=== PATIENT | male | born 1990 | race Caucasian/White ===

== ENCOUNTER 2016-07-18 20:36 | Emergency (ER) | payer OTHER ==
[~2016-07-18] VITALS: Ht 170.2 cm; Wt 84.0 kg
[~2016-07-18 20:36] MED LIST: CYCL-36 PO; ERYTOIN10 OP
[2016-07-18 20:39] VITALS: BP 131/83; PULSE 80; RESP 16; TEMP 98.3; O2SAT 100
[2016-07-18 22:32] LABS: AUTOMATED NEUTROPHIL # 7.6 TH/MM3 (1.8-7.7); BASOPHIL % 0.4 % (0.0-2.0); EOSINOPHIL # 0.1 TH/MM3 (0-0.4); EOSINOPHIL % 0.7 % (0.0-4.0); HEMATOCRIT 41.4 % (39.0-51.0); HEMO FLAGS DIFF FINAL; LYMPHOCYTE # 1.6 TH/MM3 (1.0-4.8); MEAN CELL VOLUME 89.4 FL (80.0-100.0); MEAN CORPUSCULAR HEMOGLOBIN 31.5 PG (27.0-34.0); MEAN CORPUSCULAR HGB CONC 35.3 % (32.0-36.0); MONO % 7.4 % (0.0-8.0); NEUT % 75.5 % (16.0-70.0); PLATELET COUNT 230 TH/MM3 (150-450); RED BLOOD COUNT 4.63 MIL/MM3 (4.50-5.90); RED CELL DISTRIBUTION WIDTH 12.7 % (11.6-17.2)
[2016-07-18 23:00] LABS: BICARBONATE 28.4 MEQ/L (21.0-32.0); MAGNESIUM 2.2 MG/DL (1.5-2.5); POTASSIUM 3.5 MEQ/L (3.5-5.1)
[2016-07-18 23:56] VITALS: BP 151/89; PULSE 72; RESP 18; O2SAT 100
--- NOTE | 2016-07-19 | PD ---
HPI Chief Complaint: Cardiac Complaint Time Seen by Provider: 23:53 Travel History International Travel<30 days: No Contact w/Intl Traveler<30days: No Traveled to known affect area: No History of Present Illness HPI Patient is a 25-year-old healthy male presents emergency Department with palpitations. For the last day he has had intermittent palpitations associated started is racing, skipping beats. No associated chest pain, shortness of breath or lightheadedness, nausea vomiting. No personal family history of prolonged QT, WPW, Brugada. Patient denies any stimulant abuse, but when asked specifically about caffeine he drinks approximately 10-12 cans of soda per day. He smokes marijuana but denies any other illicit drugs. PFSH Past Medical History Diminished Hearing: No Immunizations Current: Yes Past Surgical History Appendectomy: Yes Social History Alcohol Use: Yes (OCCAS) Tobacco Use: Yes (1PPD) Substance Use: Yes (marijuana) Allergies-Medications (Allergen,Severity, Reaction): Coded Allergies: No Known Allergies (Unverified , 07/18/16) Reported Meds & Prescriptions Reported Meds & Active Scripts Active Review of Systems Except as stated in HPI: all other systems reviewed are Neg Physical Exam Narrative GENERAL: Well Appearing male in no acute distress SKIN: Warm and dry. HEAD: Normocephalic. EYES: No scleral icterus. No injection or drainage. ENT: No nasal bleeding or discharge. Mucous membranes pink and moist. NECK: Supple. CARDIOVASCULAR: Regular rate and rhythm. No murmur appreciated. RESPIRATORY: No accessory muscle use. Clear to auscultation. Breath sounds equal bilaterally. GASTROINTESTINAL: Abdomen soft, non-tender, nondistended MUSCULOSKELETAL: Normal gait NEUROLOGICAL: Awake and alert. Normal speech. PSYCHIATRIC: Appropriate mood and affect; insight and judgment normal. Data Data Last Documented VS Vital Signs Date Time Temp Pulse Resp B/P Pulse Ox O2 Delivery O2 Flow Rate FiO2 07/18/16 23:56 72 18 151/89 100 Room Air 07/18/16 20:39 98.3 Orders Electrocardiogram (07/18/16 20:47) Basic Metabolic Panel (Bmp) (07/18/16 21:03) Complete Blood Count With Diff (07/18/16 21:03) Magnesium (Mg) (07/18/16 21:03) Labs Laboratory Tests Test 07/18/16 22:09 White Blood Count 10.0 TH/MM3 Red Blood Count 4.63 MIL/MM3 Hemoglobin 14.6 GM/DL Hematocrit 41.4 % Mean Corpuscular Volume 89.4 FL Mean Corpuscular Hemoglobin 31.5 PG Mean Corpuscular Hemoglobin 35.3 % Concent Red Cell Distribution Width 12.7 % Platelet Count 230 TH/MM3 Mean Platelet Volume 9.0 FL Neutrophils (%) (Auto) 75.5 % Lymphocytes (%) (Auto) 16.0 % Monocytes (%) (Auto) 7.4 % Eosinophils (%) (Auto) 0.7 % Basophils (%) (Auto) 0.4 % Neutrophils # (Auto) 7.6 TH/MM3 Lymphocytes # (Auto) 1.6 TH/MM3 Monocytes # (Auto) 0.7 TH/MM3 Eosinophils # (Auto) 0.1 TH/MM3 Basophils # (Auto) 0.0 TH/MM3 CBC Comment DIFF FINAL Differential Comment Sodium Level 141 MEQ/L Potassium Level 3.5 MEQ/L Chloride Level 106 MEQ/L Carbon Dioxide Level 28.4 MEQ/L Anion Gap 7 MEQ/L Blood Urea Nitrogen 13 MG/DL Creatinine 0.80 MG/DL Estimat Glomerular Filtration 119 ML/MIN Rate Random Glucose 89 MG/DL Calcium Level 9.2 MG/DL Magnesium Level 2.2 MG/DL MDM Medical Decision Making Medical Screen Exam Complete: Yes Emergency Medical Condition: Yes Medical Record Reviewed: Yes Differential Diagnosis 25-year-old male here with palpitations time one day intermittently. Differential includes caffeine abuse, arrhythmia, electrolyte abnormality, anxiety and less likely prolonged QT, WPW, Brugada Narrative Course Patient placed on monitor, IV established and blood obtained. Twelve-lead EKG shows sinus rhythm without notable ST or T-wave abnormalities and normal intervals. No evidence of prolonged QT, WPW, Brugada. CBC, BMP, magnesium unremarkable. Patient was reassured and instructed to cut back on his caffeine use. Diagnosis Primary Impression: Palpitations Additional Impression: Caffeine abuse Referrals: Primary Care Physician as needed Additional Instructions: Cut back on caffeine as instructed. Med/Other Pt SpecificInfo: No Change to Meds Disposition: 01 DISCHARGE HOME Condition: Stable Betty William MD Jul 19, 2016 00:00
[2016-07-19] MEDS ORDERED: VIST25CA PO (09:35)
--- NOTE | 2016-07-20 12:21 | EKG ---
Date Performed: 07/18/2016 Time Performed: 21:11:31 PTAGE: 25 years EKG: Sinus rhythm NORMAL ECG Since previous tracing, no significant change noted NO PREVIOUS TRACING DOCTOR: Wendy Shanks Interpretating Date/Time 07/20/2016 12:20:06
== END 2016-07-19 00:11 | disposition home or self-care (01) ==
LOC: NEPE 20:36
DX: R00.2 Palpitations (principal); F15.10 Other stimulant abuse, uncomplicated; F17.210 Nicotine dependence, cigarettes, uncomplicated
CPT/HCPCS: 80048; 83735; 85025; 93005

== ENCOUNTER 2016-07-19 08:57 | Emergency (ER) | payer SELFPAY ==
[2016-07-19 09:10] VITALS: BP 126/66; PULSE 73; RESP 16; TEMP 98; O2SAT 95
[2016-07-19] MEDS ORDERED: VIST25CA PO (09:35)
--- NOTE | 2016-07-19 09:36 | PD ---
HPI Chief Complaint: Cardiac Complaint Time Seen by Provider: 09:22 Travel History International Travel<30 days: No Contact w/Intl Traveler<30days: No Traveled to known affect area: No History of Present Illness HPI 25-year-old male complains of palpitation, sweating, flushing this morning. Patient was seen here yesterday with intermittent palpitation. EKG was normal. CBC BMP was normal. Patient was advised to follow with local physician. Patient was advised to decreasing caffeine intake daily. Patient states that he woke up this morning with palpitation and flushing and sweating. Patient started better now. Patient denies any chest pain. Patient states that he has some mild transient shortness of breath this morning. Patient denies any history of CAD. Patient states that he drinks a lot of coffee recently. Patient denies any illicit drugs or alcohol use. PFSH Past Medical History Diminished Hearing: No Immunizations Current: Yes Tetanus Vaccination: Unknown Influenza Vaccination: No Past Surgical History Appendectomy: Yes Social History Alcohol Use: Yes (OCCAS) Tobacco Use: Yes (1PPD) Substance Use: Yes (marijuana) Allergies-Medications (Allergen,Severity, Reaction): Coded Allergies: No Known Allergies (Unverified , 07/19/16) Reported Meds & Prescriptions Reported Meds & Active Scripts Active No Active Prescriptions or Reported Medications Review of Systems General / Constitutional: No: Fever Eyes: No: Visual changes HENT: No: Headaches Cardiovascular: Positive: Palpitations, No: Chest Pain or Discomfort Respiratory: No: Shortness of Breath Gastrointestinal: No: Abdominal Pain Genitourinary: No: Dysuria Musculoskeletal: No: Pain Skin: No Rash Neurologic: No: Weakness Psychiatric: No: Depression Endocrine: No: Polydipsia Hematologic/Lymphatic: No: Easy Bruising Physical Exam Narrative GENERAL: Well-nourished, well-developed patient. SKIN: Warm and dry. HEAD: Normocephalic. EYES: No scleral icterus. No injection or drainage. NECK: Supple, trachea midline. No JVD or lymphadenopathy. CARDIOVASCULAR: Regular rate and rhythm without murmurs, gallops, or rubs. RESPIRATORY: Breath sounds equal bilaterally. No accessory muscle use. GASTROINTESTINAL: Abdomen soft, non-tender, nondistended. MUSCULOSKELETAL: No cyanosis, or edema. BACK: Nontender without obvious deformity. No CVA tenderness. Neurologic exam normal. Data Data Last Documented VS Vital Signs Date Time Temp Pulse Resp B/P Pulse Ox O2 Delivery O2 Flow Rate FiO2 07/19/16 09:26 73 16 95 Room Air 07/19/16 09:10 98.0 126/66 Orders Electrocardiogram (07/19/16 ) MDM Medical Decision Making Medical Screen Exam Complete: Yes Emergency Medical Condition: Yes Interpretation(s) 9:33 AM. EKG shows sinus rhythm with PACs. Differential Diagnosis Differential diagnosis including PACs, PVCs, V. tach, atrial fibrillation, atrial flutter. Narrative Course 25-year-old male with palpitation. Patient was here yesterday and CBC BMP EKG was normal. EKG done today shows sinus rhythm nonspecific ST-T wave change. driver guard shows PACs. Diagnosis Primary Impression: Cardiac arrhythmia Qualified Code: I49.1 - Atrial premature depolarization Patient Instructions: General Instructions Additional Instructions: Avoid caffeine products. Vistaril as needed. Follow-up local physician. Return if worse. Med/Other Pt SpecificInfo: Prescription(s) given Scripts Hydroxyzine Pamoate (Vistaril)25 Mg Cap25 Mg PO BID #20 CAP Ref 0 Prov:Boston Power MD 07/19/16 Disposition: 01 DISCHARGE HOME Condition: Stable Boston Power MD Jul 19, 2016 09:35
--- NOTE | 2016-07-20 12:22 | EKG ---
Date Performed: 07/19/2016 Time Performed: 09:18:09 PTAGE: 25 years EKG: Sinus rhythm WITH SINUS ARRHYTHMIA NORMAL ECG Since PREVIOUS TRACING , no significant change noted PREVIOUS TRACIN07/18/2016 21.11 DOCTOR: Wendy Shanks Interpretating Date/Time 07/20/2016 12:20:31
== END 2016-07-19 09:41 | disposition home or self-care (01) ==
LOC: NEPA 08:57
DX: I49.1 Atrial premature depolarization (principal)
CPT/HCPCS: 93005

== ENCOUNTER 2016-07-28 14:28 | Emergency (ER) | payer SELFPAY ==
[~2016-07-28] VITALS: Ht 170.2 cm; Wt 85.1 kg
[~2016-07-28 14:28] MED LIST changes: -CYCL-36 PO; -ERYTOIN10 OP; +VIST25CA PO
[2016-07-28 14:44] VITALS: BP 116/75; PULSE 67; RESP 16; TEMP 98.7; O2SAT 99
--- NOTE | 2016-07-28 16:03 | PD ---
HPI Chief Complaint: Cardiac Complaint Time Seen by Provider: 15:54 Travel History International Travel<30 days: No Contact w/Intl Traveler<30days: No Traveled to known affect area: No History of Present Illness HPI The patient is a 25-year-old male who presents emergency department for palpitations and occasional right sided chest wall pain. The patient has been evaluated several times in July for palpitations. The patient states he will feel his heart rate beating irregular, felt palpitations, which causes anxiety. The patient was seen several times in the emergency department had an EKG which revealed sinus arrhythmia with PACs. The patient was advised to follow-up with her primary physician on an outpatient basis, however, has not followed up with a outpatient basis. He also complains of pain located over the lateral aspect of the sternal border on the right side, states there is a small lump which is nontender. The patient denies any acute chest pain, shortness breath, nausea, vomiting, diaphoresis. The patient does drink significant caffeine. The patient denies ingestion of any [id number] sympathomimetics, amphetamines, or cocaine. He denies any history of hypertension, hyperlipidemia, or significant early CAD. PFSH Past Medical History Diminished Hearing: No Immunizations Current: Yes Past Surgical History Appendectomy: Yes Social History Alcohol Use: Yes (OCCAS) Tobacco Use: Yes (1PPD) Substance Use: Yes (marijuana) Allergies-Medications (Allergen,Severity, Reaction): Coded Allergies: No Known Allergies (Unverified , 07/28/16) Reported Meds & Prescriptions Reported Meds & Active Scripts Active No Active Prescriptions or Reported Medications Review of Systems Except as stated in HPI: all other systems reviewed are Neg HENT: No: Lightheadedness Cardiovascular: Positive: Chest Pain or Discomfort (right sternal border pain with small lump), Palpitations, No: Tachycardia, Diaphoresis, Dyspnea on exertion Respiratory: No: Shortness of Breath Gastrointestinal: No: Nausea, Vomiting, Abdominal Pain Musculoskeletal: No: Weakness Neurologic: No: Dizziness Physical Exam Narrative GENERAL: Awake, alert, pleasant 25-year-old male who appears his stated age and is in no acute respiratory distress. SKIN: Warm and dry. HEAD: Atraumatic. Normocephalic. EYES: Pupils equal and round. No scleral icterus. No injection or drainage. ENT: No nasal bleeding or discharge. Mucous membranes pink and moist. NECK: Trachea midline. No JVD. CARDIOVASCULAR: Regular rate and rhythm. No murmur appreciated. Patient has mild tenderness along the rib junction of the right sternal border on the inferior aspect. There is no crepitus. RESPIRATORY: No accessory muscle use. Clear to auscultation. Breath sounds equal bilaterally. GASTROINTESTINAL: Abdomen soft, non-tender, nondistended. No epigastric tenderness. Negative Short's. MUSCULOSKELETAL: No obvious deformities. No clubbing. No cyanosis. No edema. NEUROLOGICAL: Awake and alert. No obvious cranial nerve deficits. Motor grossly within normal limits. Normal speech. PSYCHIATRIC: Appropriate mood and affect; insight and judgment normal. Data Data Last Documented VS Vital Signs Date Time Temp Pulse Resp B/P Pulse Ox O2 Delivery O2 Flow Rate FiO2 07/28/16 14:44 98.7 67 16 116/75 99 Orders Electrocardiogram (07/28/16 ) Chest, Pa & Lat (07/28/16 ) [facility] Medical Decision Making Medical Screen Exam Complete: Yes Emergency Medical Condition: Yes Medical Record Reviewed: Yes Interpretation(s) EKG reveals normal sinus rhythm with a rate of 63. No evidence of WPW or Brugada. NE interval is 142 ms. QTC 379 ms. Last Impressions Chest X-Ray 07/28/16 0000 Signed Impressions: Service Date/Time: Thursday, July 28, 2016 15:58 - CONCLUSION: No acute cardiopulmonary process. Devyn Teran MD Differential Diagnosis Differential diagnosis includes costochondritis, inflammation of the sternum, palpitations, arrhythmia, caffeine toxicity, valvular disorder. Narrative Course I reviewed the patient's EMR, he had an EKG performed in [facility] by Dr. Nelson which revealed a sinus arrhythmia with PAC. EKG today reveals normal sinus rhythm, no evidence of WPW or Brugada syndrome. PA and lateral chest x-ray was obtained. X-ray was unremarkable. The patient is advised to follow up with primary physician and her electrical engineering teacher on an outpatient basis, may benefit from a Holter monitor and/or loop recorder if symptoms persist. Patient is stable for discharge. Diagnosis Primary Impression: Palpitations Additional Impression: Chest wall pain Patient Instructions: General Instructions Additional Instructions: Follow-up with your primary physician and/or electrical engineering teacher. You may benefit from outpatient Holter monitor if symptoms persist. Decrease caffeine intake. Scripts No Active Prescriptions or Reported Meds Disposition: 01 DISCHARGE HOME Condition: Stable Sharath Kuo MD Jul 28, 2016 16:03
--- NOTE | 2016-07-28 16:27 | RADHPO ---
EXAM DATE/TIME: 07/28/2016 15:58 [facility] COMPARISON: No previous studies available for comparison. INDICATIONS : Evaluate lung status. Patient states a lump that appeared on his chest four days ago. Lump is in the center of chest. MEDICAL HISTORY : Asthma. SURGICAL HISTORY : None. ENCOUNTER: Initial ACUITY: 4 - 6 days PAIN SCORE: 0/10 LOCATION: Bilateral chest FINDINGS: PA and lateral views of the chest demonstrate the lungs to be symmetrically aerated without evidence of mass, infiltrate or effusion. The cardiomediastinal contours are unremarkable. Osseous structure s are intact. CONCLUSION: No acute cardiopulmonary process. Devyn Teran MD on July 28, 2016 at 16:25 Board Certified Radiologist. This report was verified electronically.
[2016-07-28 17:14] VITALS: BP 119/72
--- NOTE | 2016-07-29 09:19 | EKG ---
Date Performed: 07/28/2016 Time Performed: 15:59:26 PTAGE: 25 years EKG: Sinus rhythm . Normal ECG PREVIOUS TRACING : 07/19/2016 09.18 Compared to prior tracing no significant change DOCTOR: Gallito Tran Interpretating Date/Time 07/29/2016 09:18:24
== END 2016-07-28 17:16 | disposition home or self-care (01) ==
LOC: PHED 14:28
DX: R00.2 Palpitations (principal); R07.89 Other chest pain; R22.2 Localized swelling, mass and lump, trunk; F17.200 Nicotine dependence, unspecified, uncomplicated
CPT/HCPCS: 71020; 93005

== ENCOUNTER 2017-03-07 17:14 | Emergency (ER) | payer SELFPAY ==
[~2017-03-07] VITALS: Ht 170.2 cm; Wt 93.0 kg
[2017-03-07 17:15] VITALS: BP 128/72; PULSE 99; RESP 20; TEMP 100; O2SAT 99
[2017-03-07] MEDS ORDERED: IBUPROFEN 800 MG TAB PO ONE (19:15)
--- NOTE | 2017-03-07 19:16 | PD ---
HPI . Fever Chief Complaint: Cold / Flu Symptoms Time Seen by Provider: 19:05 Travel History International Travel<30 days: No Contact w/Intl Traveler<30days: No Traveled to known affect area: No History of Present Illness HPI This patient presents complaining with fever. He states that he became ill with cold-like symptoms several days ago but that they became acutely worse yesterday. Maximum 102. He has not been taking anything for his fever prior to presentation. He reports a cough productive of purulent sputum. No modifying factors. PFSH Past Medical History Diminished Hearing: No Immunizations Current: Yes Past Surgical History Appendectomy: Yes Social History Alcohol Use: Yes (OCCAS) Tobacco Use: Yes (1PPD) Substance Use: Yes (marijuana) Allergies-Medications (Allergen,Severity, Reaction): Coded Allergies: No Known Allergies (Unverified , 03/07/17) Reported Meds & Prescriptions Reported Meds & Active Scripts Active Ibuprofen 800 Mg Tab 800 Mg PO Q8H PRN Tussionex Pennkinetic Ext 12 HR Liq (Hydrocodone-Chlorpheniramine 12 HR Liq) 10- 8 Mg/5 Ml Susp 5 Ml PO Q12H PRN Zithromax (Azithromycin) 250 Mg Tab 250 Mg PO DAILY Starting tomorrow Review of Systems Except as stated in HPI: all other systems reviewed are Neg General / Constitutional: Positive: Fever, Chills HENT: Positive: Congestion Respiratory: Positive: Cough Physical Exam Narrative GENERAL: Patient is awake and alert and in no acute distress. SKIN: warm/dry. HEAD: Normocephalic. Atraumatic. EYES: Pupils equal and round. No scleral icterus. No injection or drainage. ENT: No nasal bleeding or discharge. Mucous membranes pink and moist. He has some erythema of the oropharynx consistent with postnasal drip. NECK: Trachea midline. Full range of motion without pain. No cervical lymphadenopathy. CARDIOVASCULAR: Regular rate and rhythm. Heart sounds normal. RESPIRATORY: No accessory muscle use. Clear to auscultation. Breath sounds equal bilaterally. GASTROINTESTINAL: Abdomen soft. Nontender. Bowel sounds present. Nondistended. MUSCULOSKELETAL: No obvious deformities. NEUROLOGICAL: Awake and alert. No obvious cranial nerve deficits. Motor grossly within normal limits. Normal speech. PSYCHIATRIC: Appropriate mood and affect; insight and judgment normal. Data Data Last Documented VS Vital Signs Date Time Temp Pulse Resp B/P (MAP) Pulse Ox O2 Delivery O2 Flow Rate FiO2 03/07/17 17:15 100.0 99 20 128/72 (90) 99 Room Air Orders Orders Ibuprofen (Motrin) (03/07/17 19:15) Chest, Pa & Lat (03/07/17 19:09) Basic Metabolic Panel (Bmp) (03/07/17 19:42) Complete Blood Count With Diff (03/07/17 19:42) Lactic Acid Sepsis Protocol (03/07/17 19:42) Blood Culture (03/07/17 19:42) Ceftriaxone Inj (Rocephin Inj) (03/07/17 19:45) Azithromycin Inj (Zithromax Inj) (03/07/17 19:45) Sodium Chlor 0.9% 1000 Ml Inj (Ns 1000 M (03/07/17 19:45) MDM Medical Decision Making Medical Screen Exam Complete: Yes Emergency Medical Condition: Yes Differential Diagnosis Differential diagnosis includes but is not limited to viral respiratory illness , bronchitis, pneumonia, allergies, CHF, asthma/COPD. Narrative Course This patient presents complaining with cough. He is also running a fever. Chest x-ray is pending to rule out pneumonia. Chest x-ray shows a left lingular pneumonia. The chest x-ray was reviewed by me. Blood cultures, CBC and lactic acid level have been added. He will be treated with a liter of fluid along with IV Rocephin and Zithromax. His care is being turned over to the ASHLEIGH Matos pending his lab workup. I suspect that he will be stable for discharge. Diagnosis Primary Impression: Cough Additional Impressions: Fever Qualified Codes: R50.9 - Fever, unspecified Pneumonia Qualified Codes: J18.9 - Pneumonia, unspecified organism Patient Instructions: Acute Cough (ED), Community Acquired Pneumonia (DC), Fever in Adults (ED), General Instructions Med/Other Pt SpecificInfo: Prescription(s) given Scripts Ibuprofen (Ibuprofen) 800 Mg Tab 800 MG PO Q8H Y for Pain/Inflammation, #60 TAB 0 Refills Prov: Melissa Woo MD 03/07/17 Hydrocodone-Chlorpheniramine 12 HR Liq (Tussionex Pennkinetic Ext 12 HR Liq) 10- 8 Mg/5 Ml Susp 5 ML PO Q12H Y for COUGH AND/OR COLD SYMPTOMS, #90 ML 0 Refills Prov: Melissa Woo MD 03/07/17 Azithromycin (Zithromax) 250 Mg Tab 250 MG PO DAILY for Infection, #4 TAB 0 Refills Starting tomorrow Prov: Melissa Woo MD 03/07/17 Condition: Stable Melissa Woo MD Mar 07, 2017 19:16
--- NOTE | 2017-03-07 19:41 | RADRPT ---
EXAM DATE/TIME: 03/07/2017 19:29 [facility] COMPARISON: CHEST PA & LAT, July 28, 2016, 15:58. INDICATIONS : Cough and fever for the past few days. MEDICAL HISTORY : Asthma. SURGICAL HISTORY : None. ENCOUNTER: Initial ACUITY: 2 days PAIN SCORE: 0/10 LOCATION: Bilateral chest FINDINGS: PA and lateral views of the chest were obtained and demonstrate new streaky infiltrate in the left pe rihilar region and lingula. The right lung is clear. There is no effusion. The cardiomediastinal cont ours are unremarkable. Osseous structures are intact. CONCLUSION: New streaky infiltrate in the left perihilar region and lingula characteristic of pne umonia. Cristobal Arreguin MD on March 07, 2017 at 19:39 Board Certified Radiologist. This report was verified electronically.
[2017-03-07] MEDS ORDERED: SODIUM CHLOR 0.9% 1000 ML INJ 1,000 ML IV ONE (19:45)
[2017-03-07] MEDS ORDERED: cefTRIAXone INJ 2,000 MG in SODIUM CHLORIDE 0.9% INJ 100 ML IV ONE (19:45)
[2017-03-07] MEDS ORDERED: AZITHROMYCIN INJ 500 MG in SODIUM CHLOR 0.9% 250 ML INJ 250 ML IV ONE (19:45)
[2017-03-07] MEDS ORDERED: IBUP800T23 PO (19:53)
[2017-03-07] MEDS ORDERED: TUSSSUS2 PO (19:53)
[2017-03-07] MEDS ORDERED: ZITH250T PO (19:53)
[2017-03-07 21:36] LABS: AUTOMATED NEUTROPHIL # 6.4 TH/MM3 (1.8-7.7); BASOPHIL % 0.3 % (0.0-2.0); EOSINOPHIL # 0.1 TH/MM3 (0-0.4); EOSINOPHIL % 1.2 % (0.0-4.0); HEMATOCRIT 43.3 % (39.0-51.0); HEMO FLAGS DIFF FINAL; LYMPHOCYTE # 1.1 TH/MM3 (1.0-4.8); MEAN CELL VOLUME 90.4 FL (80.0-100.0); MEAN CORPUSCULAR HEMOGLOBIN 30.1 PG (27.0-34.0); MEAN CORPUSCULAR HGB CONC 33.3 % (32.0-36.0); NEUT % 77.5 % (16.0-70.0); PLATELET COUNT 210 TH/MM3 (150-450); RED BLOOD COUNT 4.79 MIL/MM3 (4.50-5.90); RED CELL DISTRIBUTION WIDTH 13.2 % (11.6-17.2); WHITE BLOOD COUNT 8.2 TH/MM3 (4.0-11.0)
[2017-03-07 21:47] LABS: POTASSIUM 3.6 MEQ/L (3.5-5.1)
[2017-03-07 22:27] VITALS: BP 120/78; PULSE 80; RESP 16; O2SAT 100
== END 2017-03-07 22:41 | disposition home or self-care (01) ==
LOC: NEPD 17:14
DX: J18.9 Pneumonia, unspecified organism (principal); R05 Cough; R50.9 Fever, unspecified; F17.200 Nicotine dependence, unspecified, uncomplicated
CPT/HCPCS: 71020; 80048; 83605; 85025; 87040; 96365; 96367; 99284; J0456; J0696; J7030; J7050